=== PATIENT | female | born 1990 | race Caucasian/White ===

== ENCOUNTER 2020-12-07 08:00 | Outpatient (REF) | payer OTHER, SELFPAY ==
[2020-12-07 11:55] LABS: SARS COV2 PCR INHOUSE NEGATIVE (Negative)
== END 2020-12-07 08:01 | disposition home or self-care (01) ==
LOC: HO.LAB 08:00
PROVIDERS: Visit Provider Internal Medicine
DX: Z20.822 Contact with and (suspected) exposure to COVID-19 (principal)
CPT/HCPCS: C9803; U0003

== ENCOUNTER 2021-02-03 08:13 | Emergency (ER) | payer OTHER, SELFPAY ==
--- NOTE | ~2021-02-03 | XR_ITS ---
EXAMINATION: RIGHT FOOT AND ANKLE CLINICAL INFORMATION: Pain after injury COMPARISON: None TECHNIQUE: 3 views of the right foot and 2 views of the right ankle FINDINGS: There is a large amount soft tissue swelling seen about the ankle and proximal foot. No acute fracture or dislocation is seen. Ankle mortise is intact. No definite ankle effusion identified. Joint spaces are maintained. XR/XR ankle RT min 3V IMPRESSION: Large amount soft tissue swelling seen about the right foot and ankle without underlying bony abnormality appreciated.
--- NOTE | ~2021-02-03 | XR_ITS ---
EXAMINATION: RIGHT FOOT AND ANKLE CLINICAL INFORMATION: Pain after injury COMPARISON: None TECHNIQUE: 3 views of the right foot and 2 views of the right ankle FINDINGS: There is a large amount soft tissue swelling seen about the ankle and proximal foot. No acute fracture or dislocation is seen. Ankle mortise is intact. No definite ankle effusion identified. Joint spaces are maintained. XR/XR foot RT min 3V IMPRESSION: Large amount soft tissue swelling seen about the right foot and ankle without underlying bony abnormality appreciated.
[2021-02-03 08:17] VITALS: BP 139/89; PULSE 92; RESP 18; TEMP 36.4; O2SAT 100; BMI 50.9
--- NOTE | 2021-02-03 08:42 | ED.LOWEXIN ---
HPI - Extremity Injury (Lower) General Chief Complaint: Extremity Injury, Lower Stated Complaint: rt ankle injury - fall Time Seen by Provider: 02/03/21 08:42 Source: patient Mode of arrival: ambulatory Limitations: no limitations History of Present Illness HPI Narrative: 22-year-old female here with inversion injury to the right lower extremity which occurred yesterday after missing a step. Now having pain and swelling in the ankle and foot MD complaint: ankle injury and foot injury Related Data Allergies Allergy/AdvReac Type Severity Reaction Status Date / Time No Known Allergies Allergy Verified 02/03/21 08:20 [No Known Allergies*] Review of Systems Review of Systems: Yes all other systems are reviewed and are negative Constitutional: Constitutional: Reports no additional constitutional complaints, Denies body ache(s), Denies chills, Denies fever(s), Denies headache(s) and Denies weakness Eyes: Eyes: Reports no additional eye complaints and Denies change in vision ENT: Reports system reviewed and no additional complaints, except as documented, Denies dizziness, Denies headache(s), Denies nasal congestion, Denies nasal discharge and Denies neck pain Cardiovascular: Cardiovascular: Reports no additional cardiovascular complaints, Denies chest pain, Denies leg edema and Denies dyspnea Respiratory: Respiratory: Reports no additional respiratory complaints, Denies cough and Denies dyspnea Gastrointestinal: Gastrointestinal: Reports no additional gastrointestinal complaints, Denies abdominal pain, Denies diarrhea, Denies nausea and Denies vomiting Genitourinary: Genitourinary: Reports no additional female genitourinary complaints and Denies urinary incontinence Musculoskeletal: Musculoskeletal: Reports no additional musculoskeletal complaints, Denies back pain, Reports arthralgias, Reports joint swelling, Reports limited range of motion, Denies neck pain, Denies numbness and Denies tingling Integumentary/Breasts: Skin/Breast: Reports system reviewed and no additional complaints, except as docu and Denies rash Neurologic: Reports system reviewed and no additional complaints, except as documented, Denies Abnormal speech present, Denies dizziness, Denies headache(s), Denies numbness, Denies tingling and Denies weakness PMFSH Past Medical History Attestation statement: The following information was validated with the patient. Source: old records reviewed and nursing notes reviewed Medical History No known health problems Social History Social History Advance Directives: Yes Advance Directives Information Provided: Yes Advance Directives on File: No Patient : No Physical Exam Vital Signs: Vital Signs: Last Vital Signs Temp 97.6 F 02/03/21 08:17 Pulse 92 02/03/21 08:17 Resp 18 02/03/21 08:17 BP 139/89 02/03/21 08:17 Pulse Ox 100 02/03/21 08:17 Body Mass Index 50.9 Const: General: cooperative, healthy appearing, comfortable and no acute distress Orientation/consciousness: patient oriented x3 Limitations: no limitations HENMT: Head: Yes normal to inspection Ears: hearing grossly normal bilaterally General nose exam: Normal external nose present Face and sinus: Yes normal facial exam Mouth: Normal oral and palatal mucosa present Throat: Yes posterior oropharynx normal Eyes: General: appearance normal, both eyes and all related structures Pupils: Equal, round and reactive pupils present Neck: Neck: Yes normal visual inspection Chest: Chest palpation & inspection: normal inspection of the chest Resp: Effort & Inspection: normal respiratory effort Auscultation: clear to auscultation bilaterally Cardio: Rate: regular rate Rhythm: regular rhythm Peripheral pulses: Peripheral pulses 2+ throughout GI: Inspection: Yes normal to inspection Palpation (GI): Soft to palpation and nontender Auscultation: normal bowel sounds Back/Spine/Pelvis: Thoracic/Lumbar Spine: thoracic and lumbar spine normal to inspection Skin: General skin exam: no rashes or lesions noted Neuro: General: patient oriented x3, no focal motor deficits and normal sensation to monofilament Cranial nerves: Yes Equal, round and reactive pupils present Cognition (Neuro): normal cognition Speech: No Abnormal speech present Gait exam (Neuro): Normal gait present Motor exam (neuro): 5/5 motor strength present throughout Extrem: Other: Swelling and pain over the dorsal aspect of the right foot and the lateral aspect of the right ankle General: Yes normal to inspection Course Course Course Narrative: 30 yo female here with RLE pain/swelling s/p inversion injury. Will need x-rays 0915-x-rays negative for acute fracture. Likely sprain. Will place patient in Darek wrap and crutches MDM - Extremity Injury (Lower) Medical Records Attestation: I reviewed the patient's medical records. Lab Data Attestation: I reviewed the patient's lab results. Imaging Data right ankle/foot xray: Attestation: I personally reviewed and interpreted this imaging study as follows: Radiologist's impression: [facility] [place] [id number] ReportSigned Patient: Erica ReaMR#: [id number]: [id number]:[id number]/Sex: 30 / FADM Date: 02/03/21Loc: HO.EDAttending Dr: Ordering Physician: Davida Raines DO Date of Service: 02/03/21 Procedure(s): XR ankle RT min 3V Accession Number(s): [id number] cc: Davida Raines DO~ EXAMINATION: RIGHT FOOT AND ANKLE CLINICAL INFORMATION: Pain after injury COMPARISON: None TECHNIQUE: 3 views of the right foot and 2 views of the right ankle FINDINGS: There is a large amount soft tissue swelling seen about the ankle and proximal foot. No acute fracture or dislocation is seen. Ankle mortise is intact. No definite ankle effusion identified. Joint spaces are maintained. XR/XR ankle RT min 3V IMPRESSION: Large amount soft tissue swelling seen about the right foot and ankle without underlying bony abnormality appreciated. Discharge Plan Discharge Clinical Impression: Ankle sprain and strain Patient Disposition: Home, Self-Care Instructions: Ankle Sprain (ED) Additional Instructions: Ice, elevation, limit weight-bearing Motrin or Tylenol for pain as needed Referrals: Physician,None [Primary Care Provider] - 2 days Stand Alone Forms: Work/School Release Interventions: ED Discharge Assessment Last Done: 02/03/21 09:36 Discharge Date/Time: 02/03/21 09:37
== END 2021-02-03 09:37 | disposition home or self-care (01) ==
PROVIDERS: Emergency Provider Emergency Medicine
DX: S93.401A Sprain of unspecified ligament of right ankle, initial encounter (principal); M25.471 Effusion, right ankle; M25.571 Pain in right ankle and joints of right foot; W10.9XXA Fall (on) (from) unspecified stairs and steps, initial encounter; Y93.9 Activity, unspecified; Y92.9 Unspecified place or not applicable; Y99.9 Unspecified external cause status
CPT/HCPCS: 73610; 73630; 99283

== ENCOUNTER 2021-09-20 11:41 | Outpatient (REF) | payer OTHER, SELFPAY ==
[2021-09-20 13:54] LABS: Binax Internal Control QC Valid; Binax Now Covid-19 Ag Negative (Negative)
== END 2021-09-20 11:42 | disposition home or self-care (01) ==
LOC: HO.LAB 11:41
PROVIDERS: Visit Provider Internal Medicine
DX: Z20.822 Contact with and (suspected) exposure to COVID-19 (principal)
CPT/HCPCS: C9803

== ENCOUNTER 2025-05-09 22:00 | Emergency (ER) | payer OTHER, SELFPAY ==
--- NOTE | 2025-05-09 22:02 | ECG_ITS ---
Test Reason : CHEST PAIN Blood Pressure : */* mmHG Vent. Rate : 84 BPM Atrial Rate : 84 BPM P-R Int : 164 ms QRS Dur : 88 ms QT Int : 378 ms P-R-T Axes : 58 20 19 degrees QTcB Int : 446 ms Normal sinus rhythm Possible Left atrial enlargement Borderline ECG No previous ECGs available Referred By: Generic ED Physician Electronically Signed By: ARJUN HERNÁNDEZ
[2025-05-09 22:12] VITALS: BP 157/87; PULSE 87; RESP 18; TEMP 37.2; O2SAT 100; BMI 51.9
[2025-05-09 22:43] VITALS: BP 144/78; PULSE 88; RESP 16; TEMP 36.8; O2SAT 100
--- NOTE | 2025-05-09 22:48 | PC.NURSE ---
pt from waiting room. chest pain x 1 week, radiating to back, this happened once two years ago, did not get treatment or dx. pt feeling mild SOB respirations even and unlabored, 02 at 96% RA. confirms nausea, denies headache. v/s WNL.
[2025-05-09 23:00] LABS: MANUAL DIFF FLAG NO
[2025-05-09 23:01] LABS: Hematocrit 38.4 % (37.0-47.0); Hemoglobin 11.8 g/dl (12.0-16.0); Imm Gran Abs Auto 0.04 X10*3/uL (0.00-0.03); Imm Gran Pct Auto 0.4 % (0.0-0.4); Lymphocytes Absolute Auto 2.6 X10*3/uL (1.2-4.9); Mean Corpuscular HGB Conc 30.7 g/dl (31.0-35.0); Mean Corpuscular Hemoglobin 25.8 pg (27.0-33.0); Mean Corpuscular Volume 84.0 fL (80.0-98.0); NRBC Abs Auto 0.000 X10*3/uL (0.0-0.012); NRBC Pct Auto 0.0 /100WBC (0.0-0.2); Platelet Count 369 X10*3/uL (160-400); Red Blood Count 4.57 X10*6/uL (4.20-5.50); White Blood Count 11.1 X10*3/uL (4.8-10.8)
--- OUTSIDE RECORDS SUMMARY | 2025-05-09 23:01 | XMS_ITS ---
Author Name [facility] Organization Unknown Encounters Encounter Type Encounter Reason Primary Diagnosis Location Date Ambulatory [facility] [place] 09/15/2024
[2025-05-09 23:22] LABS: Alanine Aminotransferase 12 U/L (0-31); Albumin Level 4.1 g/dL (3.5-5.0); Alkaline Phosphatase 47 U/L (39-117); Anion Gap 11 (12-20); Aspartate Amino Transferase 16 U/L (5-31); Blood Urea Nitrogen 14 mg/dL (9-16); Calcium 8.6 mg/dL (8.4-10.2); Carbon Dioxide 26 mmol/L (22-29); Chloride 106 mmol/L (96-108); Creatinine Clr Calc Pharmacy 127.8; Estimated Glomerular Filt Rate > 60; Magnesium 2.0 mg/dL (1.6-2.6); Potassium 4.3 mmol/L (3.3-5.1); Sodium 139 mmol/L (135-145); Total Protein 8.2 g/dL (6.5-8.0)
[2025-05-09 23:24] LABS: Troponin-I High Sensitivity < 2.7 ng/L (<3.5-17.0)
--- NOTE | 2025-05-09 23:45 | ED_ITS ---
HPI - Chest Pain General Chief Complaint: Chest Pain Stated Complaint: chest pain Time Seen by Provider: 05/09/25 23:45 Source: patient Mode of arrival: ambulatory Limitations: no limitations History of Present Illness ED Provider: Dr. Fifi Bryson HPI narrative: For 34-year-old female with no significant past medical history presenting with substernal chest pain that has been off and on over the last 8 days or so. Pain is not associated with any particular activity but she feels worse when she lays down. Has some associated nausea and has vomited a couple of times. No associated diarrhea. No reported fever. Denies cough or cold-type symptoms. No lower extremity edema or pain, family history of early-onset heart disease, exogenous estrogen use or recent travel. She does have irregular periods. Admits her last cycle was about 6 weeks ago. Related Data Previous Rx's ?Medication ?Instructions ?Recorded dicyclomine 20 mg tablet 20 mg PO TID #10 tabs famotidine 20 mg tablet (Pepcid) 20 mg PO DAILY #30 ta bs 05/10/25 ondansetron 4 mg disintegrating 4 mg PO Q8H PRN nausea and 05/10/25 tablet vomiting #10 tabs Allergies Allergy/AdvReac Type Severity Reaction Status Date / Time No Known Allergies Allergy Verified 05/09/25 22:15 Review of Systems 2 Review of Systems: as per HPI, full review of systems performed and negative but for the above mentioned pertinent positives and negatives. [facility] Social History Social History Smoked in Last 30 Days: No Use of substances other than those prescribed or required for medical reasons: No Advance Directives: No Advance Directives Information Provided: No Do you have a plan to hurt others: No Plan Patient : No Physical Exam 2 Exam: Exam: GENERAL: Ill-Appearing, appears uncomfortable. SKIN: Normal skin color for ethnicity, warm, dry, no rashes noted. HEENT:? Normocephalic, atraumatic, no stridor, dry mucous membranes, dentition intact, EOMI. NECK: Soft, supple, full ROM, midline structures nontender, no step-offs, no deformities, no lymphadenopathy. CHEST: Heart regular rhythm, no murmurs, symmetric chest rise and fall. PULMONARY: Clear to auscultation bilaterally, diminished at the bases, no labored breathing, no wheezes/rhales/rhonchi. ABDOMINAL: Soft, nondistended, epigstric tenderness to palpation, positive bowel sounds in all quadrants. : Deferred. MUSCULOSKELETAL: Normal tone, full range of motion, no deformities, no peripheral edema. NEURO: Alert and oriented x3, CN II through XII intact, equal strength and sensation bilateral upper and lower extremities, no focal neurologic deficits.? PSYCHIATRIC: Flat affect, fluid speech, good eye contact and appropriate demeanor. Vital Signs: Vital Signs: Last Vital Signs Temp 98.1 F 05/10/25 03:42 Pulse 64 05/10/25 03:42 Resp 16 05/10/25 03:42 BP 126/78 05/10/25 03:42 Pulse Ox 98 05/10/25 03:42 O2 Del Method Room Air 05/10/25 03:42 BMI result Body Mass Index 51.9 Medications Administered Discontinued Medications Generic Name Dose Route Start Last Admin Trade Name Freq PRN Reason Stop Dose Admin Al Hydroxide/Mg Hydroxide 30 ml 05/10/25 00:32 05/10/25 00:44 Magnesium Hydrox/Alum Hydrox 30 Ml Oral.Susp PO 05/10/25 00:33 30 ml ONCE ONE Administration Dicyclomine HCl 20 mg 05/10/25 00:32 05/10/25 00:45 Dicyclomine Hcl 10 Mg Capsule PO 05/10/25 00:33 20 mg ONCE ONE Administration Ondansetron HCl 4 mg 05/10/25 00:32 05/10/25 00:44 Ondansetron Odt 4 Mg Tab.Rapdis TRANSLINGU 05/10/25 00:33 4 mg ONCE ONE Administration Medical Decision Making Medical Decision Making MDM Narrative: Patient presents today with a chief complaint of chest pain. Differential diagnosis includes, but is not limited to, acute coronary syndrome, musculoskeletal pain, pneumothorax, GERD, biliary colic, pleurisy, pulmonary embolism, dissection, among others. I will order EKG, chest x-ray, the laboratory workup including cardiac enzymes to further evaluate for etiology. Workup has been reassuring. No evidence of ACS or biliary tract obstruction, though I believe her pain may be abdominal in nature- either GERD or delayed gall bladder emptying. No gall stones seen on bedside US, though windows are limited secondary to body habitus. Using shared decision making, plan for discharge home to follow-up with primary care and/or specialist.? Patient understands and agrees with plan for discharge.? Discharged home in stable condition. Differential Diagnosis Differential Diagnoses: The differential diagnosis associated with the presentation includes (as above) Admission/Observation Consideration of admission/observation: Escalation of care including admission/observation considered Lab Data MDM Lab Attestation statement: I reviewed the patient's lab results. 05/09/25 22:53 05/09/25 22:53 Labs: Lab Results 05/09/25 05/10/25 Range/Units 22:53 01:48 WBC 11.1 H (4.8-10.8) X10*3/uL RBC 4.57 (4.20-5.50) X10*6/uL Hgb 11.8 L (12.0-16.0) g/dl Hct 38.4 (37.0-47.0) % MCV 84.0 (80.0-98.0) fL MCH 25.8 L (27.0-33.0) pg MCHC 30.7 L (31.0-35.0) g/dl RDW 15.0 (11.0-16.0) % Plt Count 369 (160-400) X10*3/uL MPV 9.4 (9.4-12.3) fL Immature Gran % (Auto) 0.4 (0.0-0.4) % Neut % (Auto) 64.7 (45-73) % Lymph % (Auto) 23.5 (20-40) % [place] % (Auto) 9.7 (2-11) % Eos % (Auto) 1.2 (0-4) % Baso % (Auto) 0.5 (0-2) % Lymph # (Auto) 2.6 (1.2-4.9) X10*3/uL [place] # (Auto) 1.1 (0.1-1.2) X10*3/uL Eos # (Auto) 0.1 (0.0-0.4) X10*3/uL Baso # (Auto) 0.1 (0.0-0.2) X10*3/uL Abs Immat Gran (auto) 0.04 H (0.00-0.03) X10*3/uL Absolute Neuts (auto) 7.2 (2.0-8.3) x10*3/uL Absolute Nucleated RBC 0.000 (0.0-0.012) X10*3/uL Nucleated RBC % (auto) 0.0 (0.0-0.2) /100WBC Sodium 139 (135-145) mmol/L Potassium 4.3 (3.3-5.1) mmol/L Chloride 106 (96-108) mmol/L Carbon Dioxide 26 (22-29) mmol/L Anion Gap 11 L (12-20) BUN 14 (9-16) mg/dL Creatinine 1.00 (0.5-1.4) mg/dL Estim Creat Clear Calc 127.8 Estimated GFR > 60 Random Glucose 110 (60-115) mg/dL Calcium 8.6 (8.4-10.2) mg/dL Magnesium 2.0 (1.6-2.6) mg/dL Total Bilirubin 0.5 (0.0-1.0) mg/dL AST 16 (5-31) U/L ALT 12 (0-31) U/L Alkaline Phosphatase 47 (39-117) U/L Troponin I High Sens < 2.7 (<3.5-17.0) ng/L Total Protein 8.2 H (6.5-8.0) g/dL Albumin 4.1 (3.5-5.0) g/dL Beta HCG, Quant < 2 mIU/mL Urine Color Yellow Urine Appearance Clear Urine pH 6.5 (5.0-9.0) Ur Specific [place] 1.020 (1.005-1.025) Urine Protein Negative (Neg-Trace) mg/dL Urine Glucose (UA) Negative (Negative) mg/dL Urine Ketones Negative (Negative) mg/dL Urine Blood Negative (Negative) Urine Nitrite Negative (Negative) Ur Leukocyte Esterase Moderate (2+) H (Negative) Urine RBC 0-2 (0-2) /HPF Urine WBC 6-10 H (0-5) /HPF Ur Squamous Epith Cells 3-5 (0-2) /HPF Urine Bacteria Trace (None Seen) Hyaline Casts 0-2 (0-2) /LPF Independent Interpretation I performed an independent interpretation of an: EKG Prescription Management I considered prescription management with: Pain Medication Chronic Conditions Patient?s care impacted by: Other (BMI 52) Discharge Plan Discharge Clinical Impression: Atypical chest pain, Nausea & vomiting Patient Disposition: Home, Self-Care Instructions: Acute Nausea and Vomiting (ED), Noncardiac Chest Pain (ED) Additional Instructions: DIAGNOSIS & TREATMENT: You were seen in the Emergency Department for your chest pain and high heart rate. We performed laboratory work and chest xray which did not reveal any acute abnormalities that would explain your symptoms. FURTHER CARE: We have not found any emergent physical exam or lab abnormalities that would require admission to the hospital today. Many people who come to the ER with chest pain do not leave with a specific diagnosis at the end of their visit. In the Emergency Department we try to make sure that there is no emergent problem that needs to cardiology consultation or antibiotics right now. This does not mean that your evaluation is complete--please be sure to follow up with your regular doctor as additional testing as an outpatient may be indicated Please be certain to drink plenty of fluids over the next several days. WHEN YOU SHOULD BE SEEN NEXT: Please follow-up with your primary care provider within the next 2-3 days for reevaluation of your symptoms. WHEN TO RETURN TO THE ED: Monitor your symptoms closely and return to the emergency department immediately for any new/worsening symptoms, worsening chest pain, shortness of breath, nausea, vomiting, fevers, chills, night sweats, you are unable to arrange follow-up care, or any other concerning symptoms. Prescriptions: New dicyclomine 20 mg tablet 20 mg PO TID Qty: 10 0RF ondansetron 4 mg tablet,disintegrating 4 mg PO Q8H PRN (Reason: nausea and vomiting) Qty: 10 0RF famotidine [Pepcid] 20 mg tablet 20 mg PO DAILY Qty: 30 0RF Interventions: ED Discharge Assessment Last Done: 05/10/25 03:42 Discharge Date/Time: 05/10/25 03:44 Print Language: Chinese
[2025-05-10] MEDS: Magnesium Hydrox/Alum Hydrox 30 ML ORAL.SUSP PO (00:44)
[2025-05-10 00:45] VITALS: BP 133/85; PULSE 83; RESP 16; TEMP 36.8; O2SAT 97
--- NOTE | 2025-05-10 00:45 | PC.NURSE ---
pt medicated per MAR
[2025-05-10 01:54] LABS: Appearance Urine Clear; Glucose Urine UA Negative (Negative); PH 6.5 (5.0-9.0); Specific Gravity - Urine 1.020 (1.005-1.025); UMIC TRIGGER UACC YES
[2025-05-10 01:56] LABS: UACC Culture Trigger YES
[2025-05-10 03:42] VITALS: BP 126/78; PULSE 64; RESP 16; TEMP 36.7; O2SAT 98
== END 2025-05-10 03:44 | disposition home or self-care (01) ==
PROVIDERS: Emergency Provider Emergency Medicine
DX: R07.89 Other chest pain (principal); R11.2 Nausea with vomiting, unspecified; R10.2 Pelvic and perineal pain; Z79.899 Other long term (current) drug therapy
CPT/HCPCS: 36415; 80053; 81001; 83735; 84484; 84702; 85025; 87086; 93005; 99283; 99285

== ENCOUNTER 2025-07-28 13:42 | Outpatient (AMB) | payer OTHER, SELFPAY ==
[2025-07-28 13:46] VITALS: BP 123/84; PULSE 107; RESP 16; TEMP 36.9; O2SAT 98; BMI 52.5
--- NOTE | 2025-07-28 13:46 | MHC.PC.OV ---
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 Letter request before 08/21 -reschedule Intake Note: New patient visit Land Manager Required: No Allergies No Known Allergies (No Known Allergies*) Allergy (Verified 07/28/25 13:46) Tobacco use date assessed: 07/28/25 Dental Screening Dental Screen Date: 07/28/25 Did you have a dental visit in the last 12 months?: Yes Did you have a dental problem in the last 6 months where you did not have access to dental care?: No Was dental information given to patient?: Patient has dentist HPI HPI Comments History of Present Illness Details 34 year old female with a past of low back pain, anxiety, depression, GERD, presenting to [facility] care. Has not seen a primary in some time Mid to low back pain. 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 Was following with PSS. Received SI joint injection. Had some relief for 1-2 weeks. Bending over too much or sitting for too long or laying down for too long. MRI lumbar spine. Has been on medical leave since Aug 2024. Intolerant gabapentin-drowsy/out of it. Uses lidocaine patches, cymbalta 20mg daily BH: on lorazepam, cymbalta. Obesity: Previously did well with compounded tirzepatide. Became too expensive. Tries to walk daily but increases pain levels. 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 NAD EYES: EOMI. Anicteric. HENT: Moist mucous membranes. No scleral icterus. No cervical lymphadenopathy. LUNGS: Clear to auscultation bilaterally. CARDIOVASCULAR: Regular rate and rhythm. No murmur. No JVD. ABDOMEN: Soft, non-tender +bs EXTREMITIES: No edema. Non-tender. SKIN: No rashes or lesions. Warm. NEUROLOGIC: No focal neurological deficits. CN II-XII grossly intact PSYCHIATRIC: Cooperative. Appropriate mood and affect [facility] Medical History No known health problems Family History Sister Anxiety Other FH: mental illness Social History Housing: House Alcohol intake: current Patient Tobacco Use Status: Never used Tobacco e-Cigarette/Vaping Use: Never Used Second Hand Smoke Exposure: No service: No Current occupational status: employed Current occupation: [employer] Current occupational exposures/hazards: No Cognitive needs: No Hearing needs: No Vision needs: No Questionnaire PHQ-9 Over the last 2 weeks, how often have you been bothered by any of the following problems? 1. Little interest or pleasure in doing things: nearly every day 2. Feeling down, depressed, or hopeless: several days 3. Trouble falling or staying asleep, or sleeping too much: several days 4. Feeling tired or having little energy: several days 5. Poor appetite or overeating: several days 6. Feeling bad about yourself - or that you are a failure or have let yourself or your family down: several days 7. Trouble concentrating on things, such as reading the newspaper or watching television: several days 8. Moving or speaking so slowly that other people could have noticed. Or the opposite - being so fidgety or restless that you have been moving around a lot more than usual: several days 9. Thoughts that you would be better off or of hurting yourself in some way: several days Total score: 11 Depression Screening Interpretation: Positive Depression Screening Follow-up: Change in Medication Depression Screening Done: Yes 17776 - PHQ-9 Billing: Yes Source: Developed by Drs. Angel Washington, Annabelle Brooks, Andrew Garcia and colleagues, with an educational zack from [employer]. Thrive Questionnaire I am a: Patient What is your living situation today?: I choose not to answer this question Within the past 12 months, did the food you bought not last and you didn't have the money to get more?: I choose not to answer this question Within the past 12 months, did you worry whether your food would run out before you got money to buy more?: I choose not to answer this question Do you have trouble paying for medicines?: I choose not to answer this question Do you have trouble getting transportation to medical appointments?: I choose not to answer this question Do you have trouble paying your heating and electricity bill?: I choose not to answer this question Do you have trouble taking care of your child, family member or friend?: I choose not to answer this question Do you have trouble with day-to-day activities such as bathing, preparing meals, shopping, managing finances, etc.?: I choose not to answer this question Are you currently unemployed and looking for a job?: I choose not to answer this question Are you interested in more education?: I choose not to answer this question Please select the resources that you would like help with: None Currently or been in a relationship where the following occur: No concerns reported THRIVE Score: 0 AUDIT C Alcohol Use Questionnaire (AUDIT-C) 1. How often do you have a drink containing alcohol?: Monthly or less 2. How many drinks containing alcohol do you have on a typical day when you are drinking?: 1 or 2 3. How often do you have six or more drinks on one occasion?: Never Total Score: 1 REJI-7 AMB Questionnaire REJI-7 Feeling nervous, anxious, or on edge: 3 = Nearly every day Not being able to stop or control worryin = More than half the days Worrying too much about different things: 2 = More than half the days Trouble relaxin = More than half the days Being so restless that it is hard to sit still: 3 = Nearly every day Becoming easily annoyed or irritable: 3 = Nearly every day Feeling afraid as if something awful might happen: 2 = More than half the days Total REJI-7 score (0-4 normal; 5-9 mild; 10-14 moderate; 15-21 severe): 17 Source: Developed by Drs. Angel Washington, Annabelle Brooks, Andrew Garcia and colleagues, with an educational zack from [employer]. Physical exam (Primary Care) BMI result Body Mass Index 52.5 Tobacco/Smoking Status: Tobacco use Status Patient Tobacco Use Status Never used Tobacco 07/28/25 13:52 Depression Screening Interpretation: Positive Depression Screening Follow-up: Change in Medication Currently or been in a relationship where the following occur: No concerns reported Coding Level of Care Code New Pt Level 4 (75383) Complex EM visit Add On G2211 Diagnoses Anxiety F41.9 Chronic bilateral low back pain with right-sided sciatica G89.29; M54.41 Chronicity: chronic Back pain laterality: bilateral Sciatica presence: with sciatica Sciatica laterality: sciatica of right side Class 3 severe obesity with body mass index (BMI) of 50.0 to 59.9 in adult, unspecified obesity type, unspecified whether serious comorbidity present E66.813; Z68.43 Obesity type: unspecified obesity type Obesity classification: adult class 3 (BMI >= 40) Serious obesity comorbidity presence: unspecified whether serious comorbidity present Body mass index: BMI 50.0-59.9 Additional Codes PHQ-9 - 08613 - PHQ-9 Billing: Yes ([id number]) Assessment & Plan Assessment & Plan (1) Anxiety: Code(s): F41.9 - Anxiety disorder, unspecified Category: Medical (2) Low back pain: Onset Date: ~06/2025 Code(s): M54.50 - Low back pain, unspecified Category: Medical Qualifiers: Chronicity: chronic Back pain laterality: bilateral Sciatica presence: with sciatica Sciatica laterality: sciatica of right side Qualified Code(s): G89.29 - Other chronic pain; M54.41 - Lumbago with sciatica, right side (3) Obesity: Code(s): E66.9 - Obesity, unspecified Category: Medical Qualifiers: Obesity type: unspecified obesity type Obesity classification: adult class 3 (BMI >= 40) Serious obesity comorbidity presence: unspecified whether serious comorbidity present Body mass index: BMI 50.0-59.9 Qualified Code(s): E66.813 - Obesity, class 3; Z68.43 - Body mass index [BMI] 50.0-59.9, adult Plan 34 year old female presenting to [facility] care Past medical, surgical, social reviewed Chronic back pain-ibuprofen refilled, increase duloxetine add omeprazole. lidocaine refill Obesity-morbid. Start zebpound 2.5mg weekly Labs ordered Orders: Orders Complete Blood Count Auto Diff Today D64.9 - Anemia, unspecified, E66.9 - Obesity, unspecified, F41.9 - Anxiety disorder, unspecified, M54.50 - Low back pain, unspecified, R73.09 - Other abnormal glucose, Z76.89 - Persons encountering health services in other specified circumstances Vitamin B12 and Folate Today D64.9 - Anemia, unspecified Comprehensive Met. Panel Today D64.9 - Anemia, unspecified, E66.9 - Obesity, unspecified, F41.9 - Anxiety disorder, unspecified, M54.50 - Low back pain, unspecified, R73.09 - Other abnormal glucose, Z76.89 - Persons encountering health services in other specified circumstances LDL Cholesterol Direct Today D64.9 - Anemia, unspecified, E66.9 - Obesity, unspecified, F41.9 - Anxiety disorder, unspecified, M54.50 - Low back pain, unspecified, R73.09 - Other abnormal glucose, Z76.89 - Persons encountering health services in other specified circumstances Hemoglobin A1c Today D64.9 - Anemia, unspecified, E66.9 - Obesity, unspecified, F41.9 - Anxiety disorder, unspecified, M54.50 - Low back pain, unspecified, R73.09 - Other abnormal glucose, Z76.89 - Persons encountering health services in other specified circumstances TSH reflex Free T4 Today D64.9 - Anemia, unspecified, E66.9 - Obesity, unspecified, F41.9 - Anxiety disorder, unspecified, M54.50 - Low back pain, unspecified, R73.09 - Other abnormal glucose, Z76.89 - Persons encountering health services in other specified circumstances IRON PROFILE Today D64.9 - Anemia, unspecified Referrals Orthopedics Referral M54.50 - Low back pain, unspecified 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
== END 2025-07-28 14:22 | disposition home or self-care (01) ==
LOC: HO.HMCFM 13:43
PROVIDERS: PCP Internal Medicine; Visit Provider Internal Medicine
DX: F41.9 Anxiety disorder, unspecified (principal); G89.29 Other chronic pain; M54.41 Lumbago with sciatica, right side; E66.813 Obesity, class 3; Z68.43 Body mass index [BMI] 50.0-59.9, adult

== ENCOUNTER 2025-07-28 13:42 | Outpatient (REF) | payer OTHER, SELFPAY ==
[2025-07-28 18:05] LABS: MANUAL DIFF FLAG NO
[2025-07-28 18:27] LABS: Hematocrit 40.5 % (37.0-47.0); Hemoglobin 12.4 g/dl (12.0-16.0); Imm Gran Abs Auto 0.03 X10*3/uL (0.00-0.03); Imm Gran Pct Auto 0.3 % (0.0-0.4); Lymphocytes Absolute Auto 2.4 X10*3/uL (1.2-4.9); Mean Corpuscular HGB Conc 30.6 g/dl (31.0-35.0); Mean Corpuscular Hemoglobin 25.8 pg (27.0-33.0); Mean Corpuscular Volume 84.4 fL (80.0-98.0); NRBC Abs Auto 0.000 X10*3/uL (0.0-0.012); NRBC Pct Auto 0.0 /100WBC (0.0-0.2); Platelet Count 391 X10*3/uL (160-400); Red Blood Count 4.80 X10*6/uL (4.20-5.50); White Blood Count 10.0 X10*3/uL (4.8-10.8)
[2025-07-28 18:45] LABS: Alanine Aminotransferase 12 U/L (0-31); Albumin Level 4.2 g/dL (3.5-5.0); Alkaline Phosphatase 51 U/L (39-117); Anion Gap 10 (12-20); Aspartate Amino Transferase 19 U/L (5-31); Blood Urea Nitrogen 10 mg/dL (9-16); Calcium 8.9 mg/dL (8.4-10.2); Carbon Dioxide 26 mmol/L (22-29); Chloride 106 mmol/L (96-108); Estimated Glomerular Filt Rate > 60; Iron 28 mcg/dL (30-160); Percent Iron Saturation 9 % (15-50); Potassium 4.1 mmol/L (3.3-5.1); Sodium 138 mmol/L (135-145); Total Iron Binding Capacity 301 mcg/dL (228-428); Total Protein 8.4 g/dL (6.5-8.0); Unsaturated Iron Binding 273 ug/dL
[2025-07-28 19:10] LABS: Folate 7.5 ng/mL (> or = 4.0); Vitamin B12 731 pg/mL (200-900)
== END 2025-07-28 13:43 | disposition home or self-care (01) ==
LOC: HO.WFDLDS 13:42
PROVIDERS: PCP Internal Medicine; Visit Provider Internal Medicine
DX: E66.813 Obesity, class 3 (principal); F41.9 Anxiety disorder, unspecified; D64.9 Anemia, unspecified; R73.09 Other abnormal glucose; F32.A Depression, unspecified; K21.9 Gastro-esophageal reflux disease without esophagitis; G89.29 Other chronic pain; M54.41 Lumbago with sciatica, right side; Z68.43 Body mass index [BMI] 50.0-59.9, adult; Z76.89 Persons encountering health services in other specified circumstances
CPT/HCPCS: 36415; 80053; 82607; 82746; 83036; 83540; 83721; 84443; 85025; 96127; 99202

== ENCOUNTER 2025-08-17 09:44 | Outpatient (AMB) | payer OTHER, SELFPAY ==
--- NOTE | 2025-08-17 09:48 | MHC.PC.OV ---
Vital Signs 08/17/25 09:49 Height 5 ft 8 in Weight 350 lb BMI 53.2 BP 108/84 Blood Pressure Location Rt brachial Position Sitting Respiration 16 Pulse 77 Pulse Source Pulse Oximeter Temp 98.6 F Temp Source Oral Pulse Oximetry (%) 95 Oxygen Delivery Method Room Air Intake Visit Reasons: Lower back pain /nosebleed Intake Note: Lower back pain ongoing for a year. Nose bleeds started 10 days ago every day in the morning. Saline not helping. Transition Program Manager Required: No Allergies No Known Allergies (No Known Allergies*) Allergy (Verified 08/17/25 09:51) Tobacco use date assessed: 08/17/25 Dental Screening Dental Screen Date: 07/28/25 HPI HPI Comments History of Present Illness Details 35 year old female with a past of low back pain, anxiety, depression, GERD, presenting for follow up Reports she is having recurrent nose bleeds. Is using a humidifier. Denies significant sinus congestion. Mid to low back pain. 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 Was following with PSS. Received SI joint injection. Had some relief for 1-2 weeks. Bending over too much or sitting for too long or laying down for too long. MRI lumbar spine. Has been on medical leave since Aug 2024. Intolerant gabapentin-drowsy/out of it. Uses lidocaine patches, cymbalta 20mg daily BH: on lorazepam, cymbalta. Obesity: Previously did well with compounded tirzepatide. Became too expensive. Tries to walk daily but increases pain levels. Tries to moderate diet but has not been able to lose weight. Her insurance denied zepbound. 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 NAD EYES: EOMI. Anicteric. HENT: Moist mucous membranes. No scleral icterus. +nasal polyps. No cervical lymphadenopathy. LUNGS: Clear to auscultation bilaterally. CARDIOVASCULAR: Regular rate and rhythm. No murmur. No JVD. ABDOMEN: Soft, non-tender +bs EXTREMITIES: No edema. Non-tender. SKIN: No rashes or lesions. Warm. NEUROLOGIC: No focal neurological deficits. CN II-XII grossly intact PSYCHIATRIC: Cooperative. Appropriate mood and affect [facility] Medical History No known health problems Family History Sister Anxiety Other FH: mental illness Social History Housing: House Alcohol intake: current Patient Tobacco Use Status: Never used Tobacco e-Cigarette/Vaping Use: Never Used Second Hand Smoke Exposure: No Use of substances other than those prescribed or required for medical reasons: No service: No Current occupational status: employed Current occupation: [employer] Current occupational exposures/hazards: No Cognitive needs: No Hearing needs: No Vision needs: No Questionnaire Thrive Questionnaire Date Thrive assessed: 07/28/25 I am a: Patient What is your living situation today?: I choose not to answer this question Within the past 12 months, did the food you bought not last and you didn't have the money to get more?: I choose not to answer this question Within the past 12 months, did you worry whether your food would run out before you got money to buy more?: I choose not to answer this question Do you have trouble paying for medicines?: I choose not to answer this question Do you have trouble getting transportation to medical appointments?: I choose not to answer this question Do you have trouble paying your heating and electricity bill?: I choose not to answer this question Do you have trouble taking care of your child, family member or friend?: I choose not to answer this question Do you have trouble with day-to-day activities such as bathing, preparing meals, shopping, managing finances, etc.?: I choose not to answer this question Are you currently unemployed and looking for a job?: I choose not to answer this question Are you interested in more education?: I choose not to answer this question Please select the resources that you would like help with: None Currently or been in a relationship where the following occur: No concerns reported THRIVE Score: 0 AUDIT C Alcohol Use Questionnaire (AUDIT-C) 1. How often do you have a drink containing alcohol?: Monthly or less 2. How many drinks containing alcohol do you have on a typical day when you are drinking?: 1 or 2 3. How often do you have six or more drinks on one occasion?: Never Total Score: 1 Physical exam (Primary Care) Vital Signs: Last Vital Signs Temp 98.6 F 08/17/25 09:49 Pulse 77 08/17/25 09:49 Resp 16 08/17/25 09:49 BP 108/84 08/17/25 09:49 Pulse Ox 95 08/17/25 09:49 Oxygen Delivery Method Room Air 08/17/25 09:49 BMI result Body Mass Index 53.2 Tobacco/Smoking Status: Tobacco use Status Tobacco use date assessed 08/17/25 08/17/25 09:54 Patient Tobacco Use Status Never used Tobacco 08/17/25 10:54 e-Cigarette/Vaping Use Never Used 08/17/25 10:54 Thrive Assessment: Date of Thrive Assessment Date Thrive assessed 07/28/25 08/17/25 09:54 Currently or been in a relationship where the following occur: No concerns reported Coding Level of Care Code Est Pt Level 4 (06801) Diagnoses Class 3 severe obesity with body mass index (BMI) of 50.0 to 59.9 in adult, unspecified obesity type, unspecified whether serious comorbidity present E66.813; Z68.43 Obesity type: unspecified obesity type Obesity classification: adult class 3 (BMI >= 40) Serious obesity comorbidity presence: unspecified whether serious comorbidity present Body mass index: BMI 50.0-59.9 Anxiety F41.9 Chronic bilateral low back pain with right-sided sciatica G89.29; M54.41 Chronicity: chronic Back pain laterality: bilateral Sciatica presence: with sciatica Sciatica laterality: sciatica of right side Assessment & Plan Assessment & Plan (1) Obesity: Code(s): E66.9 - Obesity, unspecified Category: Medical Qualifiers: Obesity type: unspecified obesity type Obesity classification: adult class 3 (BMI >= 40) Serious obesity comorbidity presence: unspecified whether serious comorbidity present Body mass index: BMI 50.0-59.9 Qualified Code(s): E66.813 - Obesity, class 3; Z68.43 - Body mass index [BMI] 50.0-59.9, adult (2) Anxiety: Code(s): F41.9 - Anxiety disorder, unspecified Category: Medical (3) Low back pain: Onset Date: ~06/2025 Code(s): M54.50 - Low back pain, unspecified Category: Medical Qualifiers: Chronicity: chronic Back pain laterality: bilateral Sciatica presence: with sciatica Sciatica laterality: sciatica of right side Qualified Code(s): G89.29 - Other chronic pain; M54.41 - Lumbago with sciatica, right side Plan 35 year old female presenting for follow up Obesity -start wegovy Epistaxis-refer to ENT. Nasal polyps on exam Orders: Referrals Ear/Nose/Throat Referral J33.9 - Nasal polyp, unspecified, R04.0 - Epistaxis Medications: New Wegovy (semaglutide (weight loss)) [id number] [facility] [id number] Member [id number] 0.5 mg (0.5 mL) subcut QWEEK 2 mL 1RF NS
[2025-08-17 09:49] VITALS: BP 108/84; PULSE 77; RESP 16; TEMP 37; O2SAT 95; BMI 53.2
== END 2025-08-17 10:16 | disposition home or self-care (01) ==
LOC: HO.HMCFM 09:45
PROVIDERS: PCP Internal Medicine; Visit Provider Internal Medicine
DX: E66.813 Obesity, class 3 (principal); Z68.43 Body mass index [BMI] 50.0-59.9, adult; F41.9 Anxiety disorder, unspecified; G89.29 Other chronic pain; M54.41 Lumbago with sciatica, right side

== ENCOUNTER → 2025-08-17 09:44 | Outpatient (BNVA) | payer OTHER, SELFPAY | PROVIDERS: PCP Internal Medicine; Visit Provider Internal Medicine | DX: F41.9 Anxiety disorder, unspecified (principal); E66.813 Obesity, class 3; Z68.43 Body mass index [BMI] 50.0-59.9, adult; M54.50 Low back pain, unspecified; G89.29 Other chronic pain; J30.9 Allergic rhinitis, unspecified; R04.0 Epistaxis | CPT/HCPCS: 99212 ==